=== PATIENT | female | born 1975 | race Caucasian/White ===

== ENCOUNTER 2021-12-07 05:33 | Emergency (ER) | payer OTHER ==
[2021-12-07] MEDS ORDERED: SODIUM CHLORIDE 0.9% 1,000 ML IV STA ×2 (05:54→07:46)
[2021-12-07] MEDS ORDERED: ONDANSETRON 4 MG/2 ML VIAL IVP STA (05:54)
[2021-12-07 06:45] LABS: BASOPHILS % (AUTO) 0.3 %; EOSINOPHILS # (AUTO) 0.1 10^3/uL (0.0-0.7); EOSINOPHILS % (AUTO) 0.9 %; HCT - HEMATOCRIT 49.8 % (37.0-47.0); HGB - HEMOGLOBIN 16.4 g/dL (12.0-16.0); LYMPHOCYTES # (AUTO) 0.9 10^3/uL (1.5-3.5); MEAN CORPUSCULAR HEMOGLOBIN 29.1 pg (27.0-31.0); MEAN CORPUSCULAR HGB CONC 32.9 g/dL (32.0-36.0); MEAN CORPUSCULAR VOLUME 88.3 fL (81.0-99.0); MEAN PLATELET VOLUME 10.2 fL (7.9-10.8); MONOCYTES # (AUTO) 0.7 10^3/uL (0.0-1.0); NEUTROPHILS # (AUTO) 11.7 10^3/uL (1.5-6.6); NEUTROPHILS % (AUTO) 86.5 %; PLT - PLATELET COUNT 271 10^3/uL (130-450); RED BLOOD COUNT 5.64 10^6/uL (4.20-5.40); RED CELL DISTRIBUTION WIDTH 13.5 % (12.0-15.0); WHITE BLOOD COUNT 13.5 x10^3/uL (4.8-10.8)
[2021-12-07 06:58] LABS: ALBUMIN/GLOBULIN RATIO 1.1 (1.0-2.2); ALKALINE PHOSPHATASE 80 IU/L (42-121); ALT ALANINE AMINOTRANSFERASE 20 IU/L (10-60); AST ASPARTATE AMINOTRANSFERASE 15 IU/L (10-42); BILIRUBIN,TOTAL 1.1 mg/dL (0.2-1.0); BUN - BLOOD UREA NITROGEN 24 mg/dL (6-20); CALCIUM 8.9 mg/dL (8.5-10.3); CARBON DIOXIDE - CO2 25 mmol/L (21-32); CHLORIDE 101 mmol/L (101-111); CREATININE 0.9 mg/dL (0.4-1.0); ETOH - ETHANOL < 5.0 mg/dL; GFR - MDRD 67 (>89); GLUCOSE 101 mg/dL (70-100); LIPASE 21 U/L (22-51); POTASSIUM 3.4 mmol/L (3.5-5.0); SODIUM 135 mmol/L (135-145); TOTAL PROTEIN 7.5 g/dL (6.7-8.2)
--- NOTE | 2021-12-07 07:04 | ED Physician Documentation ---
History of Present Illness - Stated complaint Stated Complaint: N/V - Chief complaint Chief Complaint: Abd Pain - Additonal information Additional information: Is a 46-year-old female presenting to the emergency department with history of 1 week of nausea, vomiting, decreased p.o. intake, diarrhea. Reports has been feeling dehydrated at home. Increasing loose stool x1 day. Had a syncopal episode this morning while attempting to get to the bathroom. 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, Dilation and currettage - Present Medications Home Medications: Ambulatory Orders Medication Instructions Recorded Confirmed Dextroamphetamine/Amphetamine 10 mg PO 10/25/16 [Adderall 10 mg Tablet] Dextroamphetamine/Amphetamine 20 mg PO DAILY 10/25/16 10/25/16 [Adderall Xr 20 mg Capsule] Omeprazole [PriLOSEC] 20 mg PO BID 10/25/16 10/25/16 buPROPion [Wellbutrin Xl] 150 mg PO BID 10/25/16 10/25/16 Levothyroxine Sodium 175 mcg PO 12/07/21 [Levothyroxine] - Allergies Allergies/Adverse Reactions: Allergies Allergy/AdvReac Type Severity Reaction Status Date / Time codeine Allergy Itching Verified 12/07/21 05:45 - Social History Does the pt smoke?: Yes Smoking Status: Current every day smoker Does the pt drink ETOH?: No Does the pt have substance abuse?: No - Immunizations Immunizations are current?: Yes - POLST Patient has POLST: No PD ED PE NORMAL - General General: Alert and oriented X 3 - HEENT HEENT: Atraumatic - Neck Neck: Supple, no meningeal sign - Cardiac Cardiac: RRR, No gallop - Respiratory Respiratory: No respiratory distress, Clear bilaterally - Abdomen Abdomen: Normal bowel sounds, Soft, Non tender, Non distended - Female Female : Deferred - Rectal Rectal: Deferred - Neuro Neuro: Alert and oriented X 3, recruitment and outreach assistant 2-12 intact, No motor deficit Results - Vitals Vitals: Vital Signs - 24 hr 12/07/21 05:37 Temperature 35.6 C L Heart Rate 97 Respiratory 18 Rate Blood Pressure 124/91 H O2 Saturation 98 Oxygen O2 Source Room air - EKG (time done) 0640 Rate: Rate (enter#) (74) Rhythm: NSR [place]: Normal Intervals: Normal MA QRS: Normal Ischemia: Normal ST segments. No: Hyperacute T waves - Labs Labs: Laboratory Tests 12/07/21 12/07/21 06:40 06:40 WBC 13.5 H RBC 5.64 H Hgb 16.4 H Hct 49.8 H MCV 88.3 MCH 29.1 MCHC 32.9 RDW 13.5 Plt Count 271 MPV 10.2 Neut # (Auto) 11.7 H Lymph # (Auto) 0.9 L Johnston # (Auto) 0.7 Eos # (Auto) 0.1 Baso # (Auto) 0.0 Absolute Nucleated RBC 0.00 Nucleated RBC % 0.0 Sodium 135 Potassium 3.4 L Chloride 101 Carbon Dioxide 25 Anion Gap 9.0 BUN 24 H Creatinine 0.9 Estimated GFR (MDRD) 67 L Glucose 101 H Calcium 8.9 Total Bilirubin 1.1 H AST 15 ALT 20 Alkaline Phosphatase 80 Total Protein 7.5 Albumin 4.0 Globulin 3.5 Albumin/Globulin Ratio 1.1 Lipase 21 L Ethyl Alcohol < 5.0 PD MEDICAL DECISION MAKING - ED course Complexity details: reviewed results ED course: Is a 46-year-old female presenting to the emergency department with history of 1 week nausea, vomiting, lightheadedness, generalized weakness, diarrhea with syncopal episode that occurred earlier today. EKG is on above was negative for indications of acute cardiac ischemia or dysrhythmia. Initial labs obtained did demonstrate leukocytosis but no significant indications of dehydration. I will be signing this patient out to the oncoming physician with labs pending. Please see their documentation for further detail.
[2021-12-07 08:03] LABS: MUDS CUTOFF CONCENTRATIONS CUTOFF CONC BELOW:
[2021-12-07 08:05] LABS: GLUCOSE, URINE (UA) NEGATIVE (NEGATIVE); KETONES,URINE (UA) 15 mg/dL (NEGATIVE); LEUKOCYTE ESTERASE, URINE NEGATIVE (NEGATIVE); NITRITE,URINE NEGATIVE (NEGATIVE); OCCULT BLOOD,URINE NEGATIVE (NEGATIVE); PH,URINE 5.5 PH (5.0-7.5); PROTEIN,URINE NEGATIVE (NEGATIVE); UROBILINOGEN,URINE 0.2 (NORMAL) E.U./dL (NORMAL)
[2021-12-07 08:08] LABS: CLARITY,URINE CLEAR (CLEAR)
[2021-12-07 08:09] LABS: BILIRUBIN,URINE NEGATIVE (NEGATIVE); ICTOTEST,URINE NEGATIVE
[2021-12-07 08:15] VITALS: BP 126/80
[2021-12-07 08:18] LABS: COCAINE SCREEN URINE NEGATIVE (NEGATIVE); METHAMPHETAMINES SCREEN, URINE NEGATIVE (NEGATIVE); OPIATE SCREEN, URINE NEGATIVE (NEGATIVE); THC CANNABINOID SCREEN, URINE NEGATIVE (NEGATIVE)
[2021-12-07 08:19] LABS: AMPHETAMINE SCREEN,URINE POSITIVE (NEGATIVE); BARBITURATE SCREEN,UR NEGATIVE (NEGATIVE); BENZODIAZEPINES SCREEN, URINE NEGATIVE (NEGATIVE); METHADONE SCREEN, URINE NEGATIVE (NEGATIVE); OXYCODONE SCREEN, URINE NEGATIVE (NEGATIVE); PROPOXYPHENE SCREEN, URINE NEGATIVE (NEGATIVE); TRICYCLIC ANTIDEPRESSANT,URINE NEGATIVE (NEGATIVE)
--- NOTE | 2021-12-07 08:32 | ED Physician Documentation ---
ED Addendum - Addendum Addendum: 12/07/21 08:30 46-year-old female with a gastroenteritis has become dehydrated and has had a syncopal episode. She was endorsed to me by Dr. Pacheco at shift change and she has intravenous fluids infusing now.I checked the patient's inferior vena cava with bedside ultrasound found to be 1.3 cm with complete collapse consistent with a 500 mL deficit. She is given further intravenous fluids. 12/07/21 08:31 urinalysis is unremarkable. Gastroenteritis with dehydration and syncope. 12/07/21 08:55
== END 2021-12-07 09:19 | disposition home or self-care (01) ==
LOC: ED 05:33
DX: K52.9 Noninfective gastroenteritis and colitis, unspecified (principal); E86.0 Dehydration; F17.200 Nicotine dependence, unspecified, uncomplicated
CPT/HCPCS: 36415; 80053; 80306; 80320; 81001; 81003; 83690; 84702; 85025; 87086; 93005; 96361; 96374; 99283

== ENCOUNTER 2022-07-27 06:59 | Emergency (ER) | payer OTHER ==
[2022-07-27 07:08] VITALS: BP 165/76
[2022-07-27] MEDS ORDERED: SILVER SULFADIAZINE CREAM 25 GM TUBE TOP STA (07:35)
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
== END 2022-07-27 07:55 | disposition home or self-care (01) ==
LOC: ED 06:59
DX: T24.212A Burn of second degree of left thigh, initial encounter (principal); F17.200 Nicotine dependence, unspecified, uncomplicated
CPT/HCPCS: 16020; 99282; A9270